=== PATIENT | female | born 1970 | race Two or more races ===

== ENCOUNTER 2019-10-03 10:18 | Emergency (ER) | payer OTHER ==
[~2019-10-03] VITALS: Ht 162.6 cm; Wt 77.1 kg
[2019-10-03] MEDS ORDERED: ATIVAN1 M1 (10:34)
[2019-10-03] MEDS ORDERED: EFFEXOR XR150 MG (10:34)
[2019-10-03] MEDS ORDERED: TRAZODONE HCL150 MG (10:34)
== END 2019-10-03 16:22 | disposition home or self-care (01) ==
LOC: ER 10:18
DX: R42 Dizziness and giddiness (principal)